=== PATIENT | female | born 1975 | race Hispanic/Latino ===

== ENCOUNTER 2017-07-30 09:01 | Emergency (ER) | payer OTHER ==
[2017-07-30 10:19] LABS: APPEARANCE,URINE Clear (CLEAR); BILIRUBIN,URINE Negative (NEGATIVE); COLOR,URINE Yellow (YELLOW); GLUCOSE, URINE (UA) Negative (NEGATIVE); KETONES,URINE Negative (NEGATIVE); LEUKOCYTE ESTERASE ,URINE Negative (NEGATIVE); NITRATE,URINE Negative (NEGATIVE); OCCULT BLOOD,URINE Negative (NEGATIVE); PH,URINE 7.5 (5.0-8.0); PROTEIN,URINE Negative (NEGATIVE); UROBILINOGEN,URINE 0.2 mg/dL (0.2-1.0)
[2017-07-30 10:25] LABS: HCG,QUAL RESULT NEGATIVE (NEGATIVE)
[2017-07-30] MEDS ORDERED: HYDROCODONE/ACETAMINOPHEN 5/325 MG TAB ONE (10:29)
== END 2017-07-30 11:37 | disposition home or self-care (01) ==
LOC: EDH 09:01
DX: M54.5 Low back pain (principal); I10 Essential (primary) hypertension; V49.09XA Driver injured in collision with other motor vehicles in nontraffic accident, initial encounter; Y93.89 Activity, other specified; Y92.89 Other specified places as the place of occurrence of the external cause; Y99.8 Other external cause status
CPT/HCPCS: 72100; 81003; 81025

== ENCOUNTER 2021-06-28 05:30 | Observation (INO) | payer BC ==
[2021-06-27 12:35] LABS: BASOPHILS % (AUTO) 0.5 % (0.0-5.0); EOSINOPHILS % (AUTO) 0.5 % (0.0-8.0); HEMATOCRIT 40.4 % (36-48); LYMPHOCYTES % (AUTO) 25.9 % (21.0-51.0); MEAN CORPUSCULAR HEMOGLOBIN 28.1 pg (27.0-33.0); MEAN CORPUSCULAR HGB CONC 32.4 g/dL (32.0-36.0); MEAN CORPUSCULAR VOLUME 86.7 fL (79-99); MONOCYTES % (AUTO) 6.3 % (3.0-13.0); NEUTROPHILS % (AUTO) 66.4 % (40.0-77.0); PLATELET COUNT (AUTO) 320 K/uL (130-400); RED BLOOD CELL COUNT(AUTO) 4.66 MIL/uL (4.00-5.50); WHITE BLOOD COUNT (AUTO) 7.6 K/uL (4.8-10.8)
[2021-06-28] VITALS (24 sets, daily range): BP systolic 97–154; BP diastolic 52–96
[~2021-06-28] VITALS: Ht 149.9 cm; Wt 67.5 kg
[~2021-06-28 05:30] MED LIST: LOSA100T58 PO
[2021-06-28] MEDS: CEFAZOLIN SODIUM 1 GM VIAL IVP SCH ×2 (06:00→10:05)
[2021-06-28] MEDS ORDERED: LACTATED RINGERS 1000ML 1,000 ML IV ONE (07:12)
[2021-06-28] MEDS ORDERED: [UNRECOGNIZED DRUG - CODE] PO (08:07)
[2021-06-28] MEDS ORDERED: VITA15LO PO (08:07)
[2021-06-28] MEDS ORDERED: MULT-1247 PO (08:07)
[2021-06-28] MEDS ORDERED: MIDAZOLAM HCL 1 MG/ML 2ML VIAL ONE (09:29)
[2021-06-28] MEDS ORDERED: FENTANYL CITRATE PF 50 MCG/1 ML 2ML VIAL ONE (09:29)
[2021-06-28] MEDS ORDERED: LIDOCAINE PF 100MG/5ML (2%) SYRINGE 5ML ONE (09:29)
[2021-06-28] MEDS ORDERED: PROPOFOL 10 MG/ML 20ML VIAL IV ONE (09:29)
[2021-06-28] MEDS ORDERED: ROCURONIUM 10MG/1ML SYR 10 MG/ML ML ONE ×2 (09:31→10:58)
[2021-06-28] MEDS ORDERED: MAGNESIUM SULFATE 4.06 MEQ/ML ***TPN USE ONLY IJ ONE (09:31)
[2021-06-28] MEDS ORDERED: KETAMINE HCL 100 MG/ML 5ML VIAL IJ ONE (09:33)
[2021-06-28] MEDS ORDERED: DEXMEDETOMIDINE HCL 200 MCG/2 ML VIAL IV ONE (09:33)
[2021-06-28] MEDS ORDERED: EPHEDRINE SULFATE 50 MG/ML AMPULE ONE (10:35)
[2021-06-28] MEDS ORDERED: GLYCOPYRROLATE 1 MG/5 ML SYRINGE ONE (10:36)
[2021-06-28] MEDS ORDERED: ATROPINE 1MG SYG IVP ONE (10:38)
[2021-06-28] MEDS ORDERED: DEXAMETHASONE SOD PHOSPHATE 10MG/ML 1ML VIAL ONE (11:06)
[2021-06-28] MEDS ORDERED: NEOSTIGMINE 5MG/5ML SYR IV ONE (12:17)
[2021-06-28] MEDS ORDERED: MEPERIDINE-PF 25 MG/ML SYG ONE (12:44)
[2021-06-28] MEDS ORDERED: MEPERIDINE-PF 50 MG/ML SYG ONE (13:03)
[2021-06-28] MEDS ORDERED: MEPERIDINE-PF 75 MG/ML SYG IM PRN (15:00)
[2021-06-28] MEDS ORDERED: ONDANSETRON 4MG INJ IVP PRN (15:00)
[2021-06-28] MEDS ORDERED: PROMETHAZINE HCL 25 MG/ML 1ML AMPULE IM PRN ×2 (15:00)
[2021-06-28] MEDS ORDERED: BISACODYL 10 MG SUPP.RECT RC PRN (15:00)
[2021-06-28] MEDS: IBUPROFEN 600 MG TABLET PO PRN ×2 (15:24→23:14)
[2021-06-28] MEDS: DEXTROSE 5 %-0.45 % NACL 1,000 ML IV PRN ×2 (16:13→23:14)
[2021-06-28] MEDS: SIMETHICONE 80 MG TAB.CHEW PO PRN (19:44)
[2021-06-28] MEDS: DOCUSATE SODIUM 100 MG CAP PO PRN (19:44)
[2021-06-28] MEDS: ACETAMINOPHEN WITH CODEINE 1 TAB TAB PO PRN (19:45)
[2021-06-29] MEDS: ACETAMINOPHEN WITH CODEINE 1 TAB TAB PO PRN (00:27)
[2021-06-29 03:06] VITALS: BP 133/78
[2021-06-29 05:51] LABS: HEMATOCRIT 33.6 % (36-48); MEAN CORPUSCULAR HEMOGLOBIN 28.8 pg (27.0-33.0); MEAN CORPUSCULAR HGB CONC 32.4 g/dL (32.0-36.0); MEAN CORPUSCULAR VOLUME 88.9 fL (79-99); RED BLOOD CELL COUNT(AUTO) 3.78 MIL/uL (4.00-5.50); RED CELL DISTRIBUTION WIDTH 13.3 % (11.0-15.5); WHITE BLOOD COUNT (AUTO) 13.4 K/uL (4.8-10.8)
[2021-06-29] MEDS ORDERED: IBUPROFEN 800 MG TAB PO PRN ×2 (06:00→08:00)
[2021-06-29] MEDS ORDERED: HYDROCODONE/ACETAMINOPHEN 5/325 MG TAB PO PRN ×2 (06:00→08:00)
[2021-06-29] MEDS ORDERED: ACETAMINOPHEN WITH CODEINE 1 TAB TAB PO PRN ×2 (06:00→08:00)
[2021-06-29 07:30] VITALS: BP 136/81
[2021-06-29] MEDS: DOCUSATE SODIUM 100 MG CAP PO PRN (08:03)
[2021-06-29] MEDS: SIMETHICONE 80 MG TAB.CHEW PO PRN (08:03)
[2021-06-29] MEDS ORDERED: ACET1TAB25 PO (09:51)
[2021-06-29] MEDS ORDERED: FERR-72 PO (09:52)
== END 2021-06-29 10:55 | disposition home or self-care (01) ==
LOC: DAH 05:30 → WSH 05:31
PROVIDERS: ADMIT Obstetrics & Gynecology; ATTEND Obstetrics & Gynecology
DX: D25.9 Leiomyoma of uterus, unspecified (principal); Z20.822 Contact with and (suspected) exposure to COVID-19; R10.2 Pelvic and perineal pain; R68.89 Other general symptoms and signs; I10 Essential (primary) hypertension; K46.9 Unspecified abdominal hernia without obstruction or gangrene; N73.6 Female pelvic peritoneal adhesions (postinfective); G89.29 Other chronic pain; Z98.891 History of uterine scar from previous surgery; Z98.51 Tubal ligation status; Z79.899 Other long term (current) drug therapy; Z98.890 Other specified postprocedural states
CPT/HCPCS: 36415 ×2; 57268; 58554; 84703; 85025; 85027; 86850; 86900; 86901; 87635; 96372; A4213; A4215 ×2; A4221; A4222; A4223; A4344; A4649 ×3; A4663; A6260; C1769 ×2; C9803; G0378 ×26; J0461; J0690; J1100; J2001; J2175 ×3; J2250; J2550; J2704; J2710; J3010; J3475; J3490 ×4; J7030; J7120 ×2

== ENCOUNTER 2022-04-07 07:07 | Emergency (ER) | payer BC ==
[~2022-04-07] VITALS: Ht 149.9 cm; Wt 65.3 kg
[~2022-04-07 07:07] MED LIST changes: +ACET-2079 PO; +FERR-72 PO; +MULT-1247 PO; +VITA15LO PO; +[UNRECOGNIZED DRUG - CODE] PO
[2022-04-07 07:11] VITALS: BP 160/100
[2022-04-07 08:16] LABS: BASOPHILS % (AUTO) 0.4 % (0.0-5.0); EOSINOPHILS % (AUTO) 0.6 % (0.0-8.0); HEMATOCRIT 41.5 % (36-48); LYMPHOCYTES % (AUTO) 20.9 % (21.0-51.0); MEAN CORPUSCULAR HEMOGLOBIN 30.4 pg (27.0-33.0); MEAN CORPUSCULAR HGB CONC 34.2 g/dL (32.0-36.0); MEAN CORPUSCULAR VOLUME 88.9 fL (79-99); MONOCYTES % (AUTO) 4.4 % (3.0-13.0); NEUTROPHILS % (AUTO) 73.4 % (40.0-77.0); PLATELET COUNT (AUTO) 289 K/uL (130-400); RED BLOOD CELL COUNT(AUTO) 4.67 MIL/uL (4.00-5.50); RED CELL DISTRIBUTION WIDTH 12.6 % (11.0-15.5)
[2022-04-07 08:22] LABS: APPEARANCE,URINE CLEAR (CLEAR); BILIRUBIN,URINE NEGATIVE (NEGATIVE); COLOR,URINE LIGHT-YELLOW (YELLOW); GLUCOSE, URINE (UA) NEGATIVE (NEGATIVE); KETONES,URINE NEGATIVE (NEGATIVE); LEUKOCYTE ESTERASE ,URINE NEGATIVE Leu/uL (NEGATIVE); NITRATE,URINE NEGATIVE (NEGATIVE); OCCULT BLOOD,URINE NEGATIVE (NEGATIVE); PH,URINE 6.5 (5.0-8.0); PROTEIN,URINE NEGATIVE (NEGATIVE); UROBILINOGEN,URINE 0.2 mg/dL (0.2-1.0)
[2022-04-07 08:29] LABS: ALBUMIN 4.2 g/dL (3.5-5.0); CREATININE 0.9 mg/dL (0.5-1.5); POTASSIUM 3.7 mmol/L (3.5-5.1)
== END 2022-04-07 09:18 | disposition home or self-care (01) ==
LOC: EDH 07:07
DX: R53.1 Weakness (principal); I10 Essential (primary) hypertension; Z79.899 Other long term (current) drug therapy; Z90.49 Acquired absence of other specified parts of digestive tract
CPT/HCPCS: 36415; 80053; 81003; 85025

== ENCOUNTER 2022-06-26 13:53 | Emergency (ER) | payer OTHER, BC ==
[~2022-06-26] VITALS: Ht 149.9 cm; Wt 65.8 kg
[2022-06-26 14:14] VITALS: BP 155/95
[2022-06-26] MEDS ORDERED: ACETAMINOPHEN 500 MG TABLET PO ONE (16:00)
[2022-06-26] MEDS ORDERED: ACET-2079 PO (17:12)
[2022-06-26] MEDS ORDERED: CYCL5TAB PO (17:12)
== END 2022-06-26 17:35 | disposition home or self-care (01) ==
LOC: EDH 13:53
DX: S39.012A Strain of muscle, fascia and tendon of lower back, initial encounter (principal); S29.012A Strain of muscle and tendon of back wall of thorax, initial encounter; Z79.899 Other long term (current) drug therapy; I10 Essential (primary) hypertension; V43.52XA Car driver injured in collision with other type car in traffic accident, initial encounter; Y93.89 Activity, other specified; Y92.89 Other specified places as the place of occurrence of the external cause; Y99.8 Other external cause status
CPT/HCPCS: 72072; 72100

== ENCOUNTER → 2023-08-30 | Outpatient (CLI) | payer BC ==
[~2023-08-30] MED LIST changes: +CYCL5TAB PO; -LOSA100T58 PO; +LOSA100T59 PO
== END | disposition home or self-care (01) ==
LOC: RAH 15:47
PROVIDERS: ATTEND Internal Medicine
DX: Z12.31 Encounter for screening mammogram for malignant neoplasm of breast (principal); R92.30 Dense breasts, unspecified
CPT/HCPCS: 77067

== ENCOUNTER → 2024-09-29 | Outpatient (CLI) | payer BC ==
[~2024-09-29] MED LIST changes: -CYCL5TAB PO; +CYCL5TAB3 PO
--- NOTE | 2024-09-30 08:58 | HMCIMG ---
Exam Type: MAMMO DX BILATERAL, US BREAST BILATERAL Clinical Information: PATIENT WAS EXPERINCING BILATERAL PAIN/TENDERNESS TO BREAST, BUT IS NO LONGER HAVING ANY SYMPTOMS TO THE BREAST DURING THE EXAM. PER PT SHE WAS TOLD THAT SHE HAS CYST TO BILATERAL BREAST. BILATERAL US ORDERED WELL. FAMILY HX OF BREAST CA: MATERNAL GREAT GRANDMA, HALF MATERNAL AUNT Comparison: None TECHNIQUE: Mammogram was performed with CC and MLO and ML projections. CAD was performed. CAD shows no worrisome regions. FINDINGS: The breasts are heterogeneously dense, which may obscure small masses.. No dominant mass or suspicious microcalcification identified. There is no nipple retraction or skin thickening. Benign-appearing calcifications are seen. Bilateral breast ultrasound was performed. There are simple cysts of the right breast 7:00 position, 7 mm, 10:00 position, 6 cm, and the left breast 12:00 position, 9 mm, and the left breast 1:00 position, 18 mm. No worrisome lesions seen either side. Bilateral benign-appearing axillary lymph nodes are seen. IMPRESSION: 1. No mammographic or sonographic signs of malignancy. 2. Routine follow-up recommended. BI-RADS: CATEGORY 2: BENIGN FINDINGS Note: A negative x-ray should not delay biopsy if a dominant or clinically suspicious mass is present, since 8-10% of cancers are not identified by mammography. Dense breasts, particularly, may obscure an underlying neoplasm.
== END | disposition home or self-care (01) ==
LOC: RAH 12:46
PROVIDERS: ATTEND Internal Medicine
DX: N60.01 Solitary cyst of right breast (principal); N60.02 Solitary cyst of left breast; R92.333 Mammographic heterogeneous density, bilateral breasts; N64.4 Mastodynia
CPT/HCPCS: 77066